=== PATIENT | female | born 1980 | race Caucasian/White ===

== ENCOUNTER 2024-12-09 16:43 | Emergency (ER) | payer SELFPAY ==
[2024-12-09] MEDS: ALPRAZolam 0.5 MG Tab PO ONE (18:37)
== END 2024-12-09 19:12 | disposition home or self-care (01) ==
LOC: MW.ED 16:43
DX: F11.13 Opioid abuse with withdrawal (principal); Z79.899 Other long term (current) drug therapy
CPT/HCPCS: 99283; A9270